=== PATIENT | female | born 1985 | race Two or more races ===

== ENCOUNTER 2020-02-04 04:03 | Emergency (ER) | payer OTHER, SELFPAY ==
[2020-02-04 04:06] VITALS: BP 112/52; PULSE 71; RESP 16; TEMP 36.7; O2SAT 98; BMI 33.0
--- NOTE | 2020-02-04 04:29 | ED.FEMALEGU ---
HPI - Female Genitourinary General Chief complaint: Vaginal Bleeding Stated complaint: Vaginal Bleeding/ Time Seen by Provider: 02/04/20 04:15 History of Present Illness HPI Narrative: This is a 34-year-old female with twin gestation who presents at approximately 11 weeks with onset vaginal spotting at approximately 1:00 a.m. this morning and denies any recent sexual intercourse and states that it is only on wiping and has not soiled her underwear and no associated clots. Otherwise, patient denies any fevers, chills, nausea other than related to , denies vomiting, pelvic cramping, diarrhea Or urinary pain/ burning /frequency. Related Data Previous Rx's Medication Instructions Recorded cefixime 400 mg PO DAILY 5 Days #5 cap 02/04/20 Allergies Allergy/AdvReac Type Severity Reaction Status Date / Time No Known Allergies Allergy Verified 02/04/20 04:06 [No Known Allergies*] Review of Systems Review of Systems: Pertinent positives and negatives as stated in HPI 10 point review of systems is otherwise negative. PMFSH Past Medical History Source: nursing notes reviewed Medical History Asthma Social History Social History Alcohol intake: never Smoking Status: Never smoker Smoked in Last 30 Days: No Use of substances other than those prescribed or required for medical reasons: No Advance Directives: No Advance Directives Information Provided: No Physical Exam Vital Signs: Vital Signs: Vital Signs Temp Pulse Resp BP Pulse Ox 02/04/20 05:39 97.8 F 65 18 100/51 L 100 02/04/20 04:06 98.1 F 71 16 112/52 L 98 Body Mass Index 33.0 VITAL SIGNS: Reviewed. GENERAL: Well developed, well nourished, in no acute distress. HEAD: Normocephalic/atraumatic, EYES: PERRLA, EOMI intact without pain, no nystagmus/pallor/icterus noted EARS: Ext canals without abnormality, TMs non-bulging and non-erythematous NOSE: Nares patent bilateral OROPHARYNX: no oral lesions noted, posterior pharynx clear and non-erythematous without noted tonsillar enlargement/erythema/exudates NECK: Supple, no adenopathy LUNGS: Normal breath sounds. No adventitious sounds or accessory muscle use. SpO2<98> CARDIOVASCULAR: Regular rate and rhythm without noted murmurs, no JVD or lower extremity edema. ABDOMEN: Soft, non-tender, non-distended with bowel sounds. No rigidity. No guarding. No palpable masses or hernias noted MUSCULOSKELETAL: No tenderness, deformities, or effusions noted on gross inspection. EXTREMITIES: No cyanosis, clubbing or edema. SKIN: Inspection of the skin reveals no rashes, ulcerations, jaundice, pallor, or petechiae. NEUROLOGIC: Alert and oriented x 4. Strength and sensation to light touch were grossly intact x 4. Course Course Course Narrative: This is a 34-year-old female with history and clinical presentation consistent with likely benign first-trimester spotting, but will evaluate via ultrasound for any evidence of cervical opening as well as any laboratory or urinalysis results to indicate infection. Review of all investigations is no evidence of systemic infection and noted an anemia is likely secondary to and otherwise there are no acute finding. However, there is a noted UTI and patient received initial antibiotics via IV here in the emergency department and then was discharged with a prescription for remaining days. Ultrasound was negative for any acute findings to suggest chorionic bleed or cervical opening. Patient was informed of all results and will be discharged in stable condition after she receives antibiotics. [place] - Female Genitourinary Lab Data Result diagrams: 02/04/20 04:39 02/04/20 04:39 Labs: Lab Results 02/04/20 02/04/20 02/04/20 Range/Units 04:32 04:39 04:39 WBC 8.0 (4.8-10.8) X10*3/uL RBC 3.51 L (4.20-5.50) X10*6/uL Hgb 10.6 L (12.0-16.0) g/dl Hct 31.2 L (37-47) % MCV 88.9 (80-98) fL MCH 30.2 (27.0-33.0) pg MCHC 34.0 (31.0-35.0) g/dl RDW 13.2 (11.0-16.0) % Plt Count 147 L (160-400) X10*3/uL MPV 10.7 (9.4-12.3) fL Immature Gran % (Auto) 0.2 (0.0-0.4) % Neut % (Auto) 59.3 (45-73) % Lymph % (Auto) 28.8 (20-40) % [place] % (Auto) 9.7 (2-11) % Eos % (Auto) 1.6 (0-4) % Baso % (Auto) 0.4 (0-2) % Lymph # (Auto) 2.3 (1.2-4.9) X10*3/uL [place]son # (Auto) 0.8 (0.1-1.2) X10*3/uL Eos # (Auto) 0.1 (0.0-0.4) X10*3/uL Baso # (Auto) 0.0 (0.0-0.2) X10*3/uL Abs Immat Gran (auto) 0.02 (0.00-0.03) X10*3/uL Absolute Neuts (auto) 4.8 (2.0-8.3) X10*3/uL Absolute Nucleated RBC 0.000 (0.0-0.012) X10*3/uL Nucleated RBC % (auto) 0.0 (0.0-0.2) /100WBC Sodium 135 (135-145) mmol/L Potassium 4.1 (3.3-5.1) mmol/l Chloride 105 (96-108) mmol/L Carbon Dioxide 23 (22-29) mmol/L Anion Gap 11 L (12-20) BUN 15 (9-16) mg/dL Creatinine 0.67 (0.5-1.4) mg/dL Estim Creat Clear Calc 157.6 Estimated GFR > 60 Random Glucose 67 (60-115) mg/dL Calcium 8.4 (8.4-10.2) mg/dL Total Bilirubin 0.3 (0.0-1.0) mg/dL AST 22 (5-31) U/L ALT 19 (0-31) U/L Alkaline Phosphatase 52 (39-117) U/L Total Protein 6.6 (6.5-8.0) g/dL Albumin 3.6 (3.5-5.0) g/dL Beta HCG, Quant 32091 mIU/mL Urine Color YELLOW Urine Appearance CLOUDY Urine pH 6.0 (5.0-8.0) Ur Specific [place] >= 1.030 H (1.005-1.025) Urine Protein 1+ H (NEG-TRACE) MG/DL Urine Glucose (UA) NEG (NEG) MG/DL Urine Ketones 5 (NEG) MG/DL Urine Blood 3+ H (NEG) Urine Nitrite NEG (NEG) Ur Leukocyte Esterase 3+ H (NEG) Urine RBC 50-75 H (0) /HPF Urine WBC 76-150 H (0-4) /HPF Ur Squamous Epith Cells 1+ /LPF Urine Bacteria 3+ /LPF Urine Trichomonas NOTED Urine Test POSITIVE H (NEGATIVE) Discharge Plan Discharge Clinical Impression: UTI (urinary tract infection) during Qualifiers: Trimester: first trimester Qualified Code(s): O23.41 - Unspecified infection of urinary tract in , first trimester Patient Disposition: Home, Self-Care Instructions: Urinary Tract Infection in (ED) Additional Instructions: increase fluid hydration, specially with water. continue with vitamins daily Keep your OB appointment on 02/15 The patient and/or family acknowledge understanding of results (as applicable), diagnosis, treatment plan, need for follow up, and symptoms that should prompt a return to the emergency room. Prescriptions: New cefixime 400 mg capsule 400 mg PO DAILY 5 Days Qty: 5 RF: 0 Referrals: Physician,Unknown [Primary Care Provider] - 2 days ( UTI and twin )
--- NOTE | 2020-02-04 04:34 | US_ITS ---
EXAMINATION: ULTRASOUND FIRST TRIMESTER CLINICAL INFORMATION: Vaginal bleeding. .. COMPARISON: 01/04/2020. TECHNIQUE: Transabdominal imaging of the pelvis was performed. FINDINGS: A normal gravid uterus is identified. Living twin intrauterine gestations are identified. The cervix is closed measuring 3.7 cm. Twin A has a crown-rump length measurement of 6.9 cm corresponding to 13 weeks 1 day. Twin B has a length of 6.2 cm corresponding to 12 weeks 5 days. The age by the LMP is 11 weeks 6 days. A normal heart rate of 156 beats per minute is identified. Both ovaries are of normal size and echogenicity. The right measures 3.5 x 3.5 x 2.9 cm. The left measures 3.6 x 1.9 x 3.0 cm. There is no pelvic free fluid. IMPRESSION: Living twin intrauterine gestations with an CARINE of 08/19/2020.
[2020-02-04 05:13] LABS: MANUAL DIFF FLAG NO
[2020-02-04 05:13] LABS: Glucose Urine UA NEG (NEG); Nitrite Urine NEG (NEG); Specific Gravity - Urine >= 1.030 (1.005-1.025); Urine Blood 3+ (NEG); Urine Ketones 5 MG/DL (NEG); Urine Protein 1+ MG/DL (NEG-TRACE)
[2020-02-04 05:14] LABS: Basophils Percent Auto 0.4 % (0-2); Eosinophils Absolute Auto 0.1 X10*3/uL (0.0-0.4); Eosinophils Percent Auto 1.6 % (0-4); Hematocrit 31.2 % (37-47); Hemoglobin 10.6 g/dl (12.0-16.0); Imm Gran Abs Auto 0.02 X10*3/uL (0.00-0.03); Imm Gran Pct Auto 0.2 % (0.0-0.4); Lymphocytes Absolute Auto 2.3 X10*3/uL (1.2-4.9); Lymphocytes Percent Auto 28.8 % (20-40); Mean Corpuscular Hemoglobin 30.2 pg (27.0-33.0); Mean Corpuscular Volume 88.9 fL (80-98); Mean Platelet Volume 10.7 fL (9.4-12.3); Monocytes Absolute Auto 0.8 X10*3/uL (0.1-1.2); Monocytes Percent Auto 9.7 % (2-11); Neutrophils Absolute Auto 4.8 X10*3/uL (2.0-8.3); Neutrophils Percent Auto 59.3 % (45-73); Platelet Count 147 X10*3/uL (160-400); Red Blood Count 3.51 X10*6/uL (4.20-5.50); Red Cell Distribution Width 13.2 % (11.0-16.0)
[2020-02-04 05:20] LABS: Appearance Urine CLOUDY; Color Urine YELLOW
[2020-02-04 05:21] LABS: Leukocyte Esterase Urine 3+ (NEG)
[2020-02-04 05:23] LABS: RBC Urine 50-75 /HPF (0); Squamous Epithelial Cell Urine 1+ /LPF
[2020-02-04 05:24] LABS: Bacteria Urine 3+ /LPF; Trichomonas Urine NOTED
[2020-02-04 05:25] LABS: UPreg QC Valid YES; Urine Pregnancy POSITIVE (NEGATIVE)
[2020-02-04 05:38] LABS: Alanine Aminotransferase 19 U/L (0-31); Albumin Level 3.6 g/dL (3.5-5.0); Alkaline Phosphatase 52 U/L (39-117); Anion Gap 11 (12-20); Aspartate Amino Transferase 22 U/L (5-31); Bilirubin Total 0.3 mg/dL (0.0-1.0); Blood Urea Nitrogen 15 mg/dL (9-16); Calcium 8.4 mg/dL (8.4-10.2); Carbon Dioxide 23 mmol/L (22-29); Chloride 105 mmol/L (96-108); Creatinine Clr Calc Pharmacy 157.6; Estimated Glomerular Filt Rate > 60; Glucose Random 67 mg/dL (60-115); Potassium 4.1 mmol/l (3.3-5.1); Sodium 135 mmol/L (135-145); Total Protein 6.6 g/dL (6.5-8.0)
[2020-02-04 05:39] VITALS: BP 100/51; PULSE 65; RESP 18; TEMP 36.6; O2SAT 100
[2020-02-04] MEDS: cefTRIAXone sodium 1 GM in 0.9 % Sodium Chloride 50 ML IV (06:31)
== END 2020-02-04 07:20 | disposition home or self-care (01) ==
PROVIDERS: Emergency Provider Student in an Organized Health Care Education/Training Program
DX: O23.41 Unspecified infection of urinary tract in pregnancy, first trimester (principal); Z3A.11 11 weeks gestation of pregnancy
CPT/HCPCS: 36415; 76801; 76802; 80053; 81001; 81025; 84702; 85025; 87086; 96365; 99284